=== PATIENT | female | born 1985 | race Caucasian/White ===

== ENCOUNTER 2018-03-28 02:23 | Outpatient (CLI) | payer BC, SELFPAY ==
--- NOTE | 2018-03-28 11:44 | DI.MRI_ITS ---
SYMPTOM/DIAGNOSIS: LT KNEE PAIN, M25.562 LEFT KNEE MRI: Fat suppressed T 2 axial, T 1 and fat suppressed T 2 coronal, proton density and fat suppressed T 2 sagittal and oblique sagittal proton density sequences were performed. The marrow shows patchy increased signal consistent with red marrow reconversion which is commonly seen with obesity and anemia. There is a small joint effusion. The exam is limited by patient body habitus. The knee coil was unable to be used. There is mild edema in the anterior cruciate ligament which could indicate a partial tear. Minimal high signal is seen around the medial collateral ligament. No meniscal tears or cartilage defects are seen. IMPRESSION: Limited exam due to patient body habitus. There is a question of ACL and MCL sprains.
== END 2018-03-28 02:43 ==
PROVIDERS: PCP Nurse Practitioner Family; Visit Provider Nurse Practitioner Family
DX: M25.562 Pain in left knee (principal); M25.462 Effusion, left knee; S83.92XA Sprain of unspecified site of left knee, initial encounter
CPT/HCPCS: 73721

== ENCOUNTER 2018-07-02 12:25 | Outpatient (REF) | payer BC, SELFPAY ==
[2018-07-02 13:11] LABS: TSH (W/Ref FT4) 2.03 uIU/mL (0.358-3.74)
== END 2018-07-02 12:45 ==
LOC: NCHCN 12:25
PROVIDERS: PCP Nurse Practitioner Family; Visit Provider Nurse Practitioner Family
DX: E03.9 Hypothyroidism, unspecified (principal)
CPT/HCPCS: 84443

== ENCOUNTER 2019-10-08 16:41 | Outpatient (REF) | payer MEDICAID, SELFPAY ==
[2019-10-08 19:04] LABS: *AMPHETAMINES SCREEN URINE Negative (Negative); *BARBITURATES SCREEN URINE Negative (Negative); *BENZODIAZEPINES SCREEN URINE Negative (Negative); Cannabinoids THC POSITIVE (Negative); Cocaine Screen,Urine Negative (Negative); METHADONE URINE SCREEN Negative (Negative); OPIATES URINE SCREEN Negative (Negative)
[2019-10-08 19:12] LABS: Tricyclic Antidepressants Negative (Negative)
[2019-10-10 14:53] LABS: Chlamydia Result Negative (Negative); GC Result Negative (Negative)
[2019-10-14 10:57] LABS: Buprenorphine Negative; Norbuprenorphine Negative
== END 2019-10-08 17:01 ==
LOC: LBN 16:41
PROVIDERS: PCP Nurse Practitioner Family; Visit Provider Advanced Practice Midwife
DX: Z34.91 Encounter for supervision of normal pregnancy, unspecified, first trimester (principal); Z11.3 Encounter for screening for infections with a predominantly sexual mode of transmission
CPT/HCPCS: 80307; 87491; 87591

== ENCOUNTER 2019-10-22 00:25 | Outpatient (CLI) | payer MEDICAID, SELFPAY ==
[2019-10-22 10:54] LABS: Abs Immature Grans 0.02 k/cumm (0.0-0.09); Absolute Basophil Count 0.02 k/cumm (0.0-0.2); Absolute Eosinophil Count 0.13 k/cumm (0.0-0.7); Absolute Lymphocyte Count 1.61 k/cumm (1.2-3.4); Absolute Monocyte Count 0.35 k/cumm (0.11-0.7); Absolute Neutrophil Count 8.87 k/cumm (1.2-6.7); Basophils % 0.2; Eosinophils % 1.2; HCT 40.3 % (36.0-46.0); HGB 13.5 g/dL (12.0-15.5); Immature Grans % 0.2 %; Lymphocytes % 14.6; Mean Corp. HGB Concentration 33.5 g/dL (32.0-36.0); Mean Corpuscular Hemoglobin 28.4 pg (27.0-33.0); Mean Corpuscular Volume 84.8 fL (80-95); Mean Platelet Volume 11.2 fL (8.0-11.0); Monocytes % 3.2; Neutrophils % 80.6; Platelet Count 279 x1000/uL (130-400); RBC 4.75 m/cumm (4.00-5.20); RBC Distribution Width 13.8 % (11.7-14.6)
[2019-10-22 10:56] LABS: Glucose,1 Hr (Glucola) 151 mg/dL (80-140)
[2019-10-22 11:53] LABS: TSH (W/Ref FT4) 2.49 uIU/mL (0.36-3.74)
[2019-10-23 09:58] LABS: Hepatitis B Surface Ag Negative (Negative); Hepatitis C Ab w Rflx HCV PCR Negative (Negative)
[2019-10-23 10:50] LABS: Rubella IgG Ab (UVM) Positive (See Note); Varicella IgG Antibody Negative (See Note)
[2019-10-23 11:10] LABS: HIV-1/2 Ag & Ab Screen Negative (Negative)
[2019-10-23 12:46] LABS: Syphilis Total Ab w/Reflex Nonreactive (Nonreactive)
== END 2019-10-22 00:45 ==
PROVIDERS: Advanced Practice Midwife; PCP Family Medicine; Visit Provider Advanced Practice Midwife
DX: Z34.91 Encounter for supervision of normal pregnancy, unspecified, first trimester (principal); Z11.59 Encounter for screening for other viral diseases; Z11.4 Encounter for screening for human immunodeficiency virus [HIV]; Z01.84 Encounter for antibody response examination
CPT/HCPCS: 36415; 82950; 86787; 86803; 86850; 86900; 86901; 87340; 87389; 84443; 85025; 86762; 86780

== ENCOUNTER 2019-10-27 00:56 | Outpatient (CLI) | payer MEDICAID, SELFPAY ==
--- NOTE | 2019-10-27 06:30 | DI.US_ITS ---
EXAM: US OB CERVICAL LENGTH CLINICAL HISTORY: hx LEEP, increased risk of short cervix,034.40,Z98.890. COMPARISON: No exams were available for comparison TECHNIQUE: Routine examination was performed. FINDINGS: There is a single intrauterine gestation. The heart rate is 153 beats per minute. The fetus i s in the cephalic presentation. The placenta is anterior without evidence of previa. The cervical length is 4.0 cm. IMPRESSION: The cervical length measurement is 4.0 cm. DATA REPOSITORY:
== END 2019-10-27 01:16 ==
PROVIDERS: PCP Family Medicine; Visit Provider Advanced Practice Midwife
DX: O34.42 Maternal care for other abnormalities of cervix, second trimester (principal); Z3A.16 16 weeks gestation of pregnancy
CPT/HCPCS: 76815

== ENCOUNTER 2019-10-29 00:53 | Outpatient (CLI) | payer MEDICAID, SELFPAY ==
[2019-10-29 08:45] LABS: Glucose 1 Hour 159 mg/dL
[2019-10-29 10:42] LABS: Glucose 3 Hour 66 mg/dL
== END 2019-10-29 01:13 ==
PROVIDERS: PCP Family Medicine; Visit Provider Advanced Practice Midwife
DX: R73.09 Other abnormal glucose (principal); Z34.91 Encounter for supervision of normal pregnancy, unspecified, first trimester
CPT/HCPCS: 36415; 82951

== ENCOUNTER 2019-11-11 00:43 | Outpatient (CLI) | payer MEDICAID, SELFPAY ==
--- NOTE | 2019-11-11 07:00 | DI.US_ITS ---
EXAM: US OB 2-3 TRIMESTER CLINICAL HISTORY: 18 wk anatomy survey,Z34.90. TECHNIQUE: Transabdominal obstetrical ultrasound performed. The exam is limited by patient body hab itus. COMPARISON: US OB CERVICAL LENGTH from 10/27/2019 FINDINGS: Transabdominal obstetrical ultrasound performed. FINDINGS: Number of fetuses: One. position: Breech. heart rate: 147 bpm. Placental grade: 0 Placental location: Anterior. No evidence of previa. BIOMETRIC DATA: BPD: ! 40 millimeters, 18.1 weeks HC: ! 155 millimeters, 18+ 3 weeks AC: ! 135 millimeters, 19+ 0 weeks FL: ! 29 millimeters, 18+ 6 weeks Cisterna Magna: 3.3 millimeters Cerebellum: 1.76 cm Composite Age: ! 18+ 4 weeks EDC by US: 09 April 2020 Amount of fluid is within normal limits. ANATOMICAL SURVEY: Four-chambered heart: Unremarkable. LVOT: Not well seen RVOT: Not well seen Left-sided stomach: Unremarkable. urinary bladder: Unremarkable. Bilateral kidneys: Unremarkable. Three-vessel cord: Unremarkable. Cord insertion: Unremarkable. Posterior fossa:Not well seen ventricles: Unremarkable. nose: Unremarkable. lips: Unremarkable. palate: Unremarkable. spine: Unremarkable. Two arms and two legs: Unremarkable. IMPRESSION: Single living intrauterine gestation measuring 18+ 4 weeks. anatomy was suboptimally visualize d due to maternal habitus. The patient is scheduled to return 18 November 2019 for additional imaging. DATA REPOSITORY:
== END 2019-11-11 01:03 ==
PROVIDERS: PCP Family Medicine; Visit Provider Advanced Practice Midwife
DX: Z34.92 Encounter for supervision of normal pregnancy, unspecified, second trimester (principal); Z3A.18 18 weeks gestation of pregnancy
CPT/HCPCS: 76805

== ENCOUNTER 2019-11-27 07:58 | Outpatient (CLI) | payer MEDICAID, SELFPAY ==
--- NOTE | 2019-11-27 | DI.US_ITS ---
EXAM: US OB F/U FACIAL/LVOT/RVOT CLINICAL HISTORY: F/U RVOT,LVOT, POSTERIOR FOSSA. COMPARISON: US US OB 2-3 TRIMESTER from 11/11/2019 TECHNIQUE: Transabdominal obstetrical ultrasound performed. FINDINGS: Sonographic images demonstrate a single intrauterine gestation in variable position. The placenta is anterior. There is no evidence of previa. Estimated date of delivery 14 April 2020 heart rate motion is Dopplered at: 147 bpm. RVOT: Unremarkable. LVOT: Unremarkable. Cisterna magna 2.8 millimeters. Cerebellum 2.1 cm. Normal appearance. Amniotic fluid amount is within normal limits. IMPRESSION: The heart and posterior fossa were better seen on today's exam. The exam is somewhat limited b y maternal body habitus. DATA REPOSITORY:
--- NOTE | 2019-12-10 14:14 | ANES_ITS ---
Anesthesia Note Anesthesia Consult 22 week gestation: Clinical consultation with Wolfgang George CNM in room. Discussed with pt. the various services anesthesia has to offer a patriuent at [facility]. Evaluated pts airway: MP 1, FROM Adequate mouth opening, 3 finger breadths, good dentition with one top left molar broken. Vascular access will be challenging. Neuraxial access is at this time very challenging, with consideration for further weight gain with the remainder of the . Unable to palpate any bony prominences. In collaboration with Wolfgang George CNM, a discussion was initiated regarding if Mrs. Zimmerman would be served best at a Tertiary Facility, due in great part to poor neuraxial and vascular access. This conversation was received very well by the patient.
== END 2019-11-27 08:18 ==
PROVIDERS: PCP Family Medicine; Visit Provider Advanced Practice Midwife
DX: Z34.92 Encounter for supervision of normal pregnancy, unspecified, second trimester (principal); Z36.2 Encounter for other antenatal screening follow-up
CPT/HCPCS: 76815

== ENCOUNTER 2020-01-15 02:27 | Outpatient (CLI) | payer MEDICAID, SELFPAY ==
[2020-01-15 10:31] LABS: Glucose 1 Hour 191 mg/dL
[2020-01-15 12:29] LABS: Glucose 3 Hour 59 mg/dL
== END 2020-01-15 02:47 ==
PROVIDERS: Advanced Practice Midwife; PCP Family Medicine; Visit Provider Obstetrics & Gynecology Maternal & Fetal Medicine
DX: R73.09 Other abnormal glucose (principal)
CPT/HCPCS: 36415; 82951

== ENCOUNTER 2020-12-16 17:20 | Outpatient (REF) | payer MEDICAID, SELFPAY ==
[2020-12-16 15:28] LABS: HCT 42.8 % (36.0-46.0); HGB 13.1 g/dL (11.2-15.7); MCH 24.7 pg (27.0-33.0); MCHC 30.6 % (32.0-36.0); MCV 80.8 fL (80-95); MPV 11.3 fL (8.0-11.0); Platelet Count 359 10^3/uL (130-400); RDW 15.2 % (11.7-14.6); RDW-SD 44.3 fL; WBC 13.69 10^3/uL (4.4-10.8)
[2020-12-16 17:04] LABS: Hemoglobin A1C 5.6 % (<5.7)
[2020-12-16 17:15] LABS: ALT 19 U/L (14-59); AST 13 U/L (15-37); Albumin 3.6 g/dL (3.4-5.0); Alkaline Phosphatase 88 U/L (46-116); Anion Gap 9.2 mmol/L (3-11); BUN 10 mg/dL (7-18); Bilirubin, Total 0.3 mg/dL (0.2-1.0); CO2 26.8 mmol/L (21.0-32.0); CREATININE 0.9 mg/dL (0.55-1.02); Calcium 9.4 mg/dL (8.5-10.1); Chloride 104 mmol/L (98-107); Glucose 89 mg/dL (74-106); Potassium 4.4 mmol/L (3.5-5.1); Sodium 140 mmol/L (136-145); TSH (W/Ref FT4) 3.26 uIU/mL (0.36-3.74); Total Protein 7.6 g/dL (6.4-8.2)
== END 2020-12-16 17:21 | disposition home or self-care (01) ==
LOC: NCHCN 17:20
PROVIDERS: PCP Family Medicine; Visit Provider Nurse Practitioner Family
DX: E03.9 Hypothyroidism, unspecified (principal); R73.9 Hyperglycemia, unspecified; G47.9 Sleep disorder, unspecified; Z68.43 Body mass index [BMI] 50.0-59.9, adult; Z86.32 Personal history of gestational diabetes
CPT/HCPCS: 80053; 85027; 83036; 84443

== ENCOUNTER 2020-12-28 21:12 | Emergency (ER) | payer MEDICAID, SELFPAY ==
--- NOTE | 2020-12-28 21:45 | DI.RAD_ITS ---
Exam(s) XR FOOT LT COMPLETE EXAM: XR FOOT LT COMPLETE CLINICAL HISTORY: left lateral foot pain.. TECHNIQUE: 2D digital imaging was performed. COMPARISON: No exams were available for comparison FINDINGS: BONES: There is an acute fracture through the base of the 5th metatarsal with distraction of approxim ately 4-5 mm. No other acute fractures identified. No bony destructive lesion is seen. JOINTS: No dislocation present. SOFT TISSUE: Soft tissue swelling adjacent to the 5th metatarsal. IMPRESSION: Distracted fracture of the base of the 5th metatarsal. DATA REPOSITORY: RADIATION DOSE DELIVERED:
[2020-12-28 21:47] VITALS: BP 139/80; PULSE 92; RESP 20; TEMP 36.5; O2SAT 97
--- NOTE | 2020-12-28 22:56 | DI.VRAD_ITS ---
PROCEDURE INFORMATION: Exam: XR Left Foot Exam date and time: 12/28/2020 9:57 PM Age: 35 years old Clinical indication: Injury or trauma; Blunt trauma; Left; Injury date: 12/28/20; Injury details: Lateral foot pain after trip and fall TECHNIQUE: Imaging protocol: XR Left foot. Views: 3 or more views. COMPARISON: US LEFT EXTREMITY ULTRASOUND 01/29/2018 10:44 AM FINDINGS: Bones/joints: There is mildly displaced fracture of the base of the 5th metatarsal with diastasis at the fracture line and approximately 4-5 mm proximal migration of the proximal fragment. No additional acute fracture visualized. No joint dislocation. There is accessory navicular, non fused. Alignment of the midfoot is preserved. Soft tissues: Moderate soft tissue edema of the lateral left midfoot. IMPRESSION: Base of the 5th metatarsal fracture with mild proximal migration of proximal fracture fragment as discussed. Dictated and Authenticated by: Solitario Ho MD. Ordering:PAT Alonzo MD
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
== END 2020-12-28 23:28 | disposition home or self-care (01) ==
PROVIDERS: Emergency Provider Physician Assistant; PCP Family Medicine
DX: S92.352A Displaced fracture of fifth metatarsal bone, left foot, initial encounter for closed fracture (principal); X50.9XXA Other and unspecified overexertion or strenuous movements or postures, initial encounter
CPT/HCPCS: 28470; 73630

== ENCOUNTER 2021-01-13 12:25 | Outpatient (CLI) | payer MEDICAID, SELFPAY ==
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
== END 2021-01-13 12:26 | disposition home or self-care (01) ==
LOC: DIORS 12:25
PROVIDERS: PCP Family Medicine; Referring Provider Family Medicine; Visit Provider Student in an Organized Health Care Education/Training Program
DX: S92.352A Displaced fracture of fifth metatarsal bone, left foot, initial encounter for closed fracture (principal); X58.XXXA Exposure to other specified factors, initial encounter
CPT/HCPCS: 73630

== ENCOUNTER 2021-01-27 11:02 | Outpatient (CLI) | payer MEDICAID, SELFPAY ==
--- NOTE | 2021-01-27 10:15 | DI.RAD_ITS ---
Exam(s) XR FOOT LT COMPLETE EXAM: XR FOOT LT COMPLETE CLINICAL HISTORY: follow up. TECHNIQUE: 2D digital imaging was performed. COMPARISON: CR XR FOOT LT COMPLETE from 01/13/2021 FINDINGS: BONES: No change alignment of fracture at the base of the 5th metatarsal. No new fracture is present . No bony destructive lesion is seen. JOINTS: No dislocation present. SOFT TISSUE: Normal. IMPRESSION: No change in alignment metatarsal base fracture DATA REPOSITORY: RADIATION DOSE DELIVERED:
== END 2021-01-27 11:03 | disposition home or self-care (01) ==
LOC: DIORS 11:03
PROVIDERS: PCP Family Medicine; Referring Provider Family Medicine; Visit Provider Physician Assistant Surgical
DX: S92.352D Displaced fracture of fifth metatarsal bone, left foot, subsequent encounter for fracture with routine healing (principal); W01.0XXD Fall on same level from slipping, tripping and stumbling without subsequent striking against object, subsequent encounter
CPT/HCPCS: 73630

== ENCOUNTER 2021-02-10 11:06 | Outpatient (CLI) | payer MEDICAID, SELFPAY ==
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
== END 2021-02-10 11:07 | disposition home or self-care (01) ==
LOC: DIORS 11:07
PROVIDERS: PCP Family Medicine; Referring Provider Family Medicine; Visit Provider Physician Assistant
DX: S92.352D Displaced fracture of fifth metatarsal bone, left foot, subsequent encounter for fracture with routine healing (principal); X58.XXXD Exposure to other specified factors, subsequent encounter
CPT/HCPCS: 73630

== ENCOUNTER 2022-01-30 16:29 | Outpatient (REF) | payer MEDICAID, SELFPAY ==
[2022-01-30 18:38] LABS: HCT 42.8 % (36.0-46.0); HGB 13.8 g/dL (11.2-15.7); MCH 26.6 pg (27.0-33.0); MCHC 32.2 % (32.0-36.0); MCV 83 fL (80-95); MPV 11.2 fL (8.0-11.0); Platelet Count 386 10^3/uL (130-400); RBC 5.18 10^6/uL (3.93-5.22); RDW 14.4 % (11.7-14.6); RDW-SD 43.2 fL; WBC 17.26 10^3/uL (4.4-10.8)
[2022-01-30 19:46] LABS: Hemoglobin A1C 5.8 % (<5.7)
[2022-01-30 19:52] LABS: Anion Gap 9.9 mmol/L (3-11); BUN 10 mg/dL (7-18); CO2 27.1 mmol/L (21.0-32.0); CREATININE 0.7 mg/dL (0.55-1.02); Calcium 8.9 mg/dL (8.5-10.1); Chloride 105 mmol/L (98-107); Glucose 117 mg/dL (74-106); Potassium 4.1 mmol/L (3.5-5.1); Sodium 142 mmol/L (136-145); TSH (W/Ref FT4) 2.93 uIU/mL (0.36-3.74); Vitamin B12 291 pg/mL (193-986)
== END 2022-01-30 16:30 | disposition home or self-care (01) ==
LOC: NCHCN 16:29
PROVIDERS: PCP Family Medicine; Visit Provider Nurse Practitioner Family
DX: R53.83 Other fatigue (principal); R73.9 Hyperglycemia, unspecified; E03.9 Hypothyroidism, unspecified; F41.1 Generalized anxiety disorder; Z86.32 Personal history of gestational diabetes; R06.83 Snoring; G47.20 Circadian rhythm sleep disorder, unspecified type
CPT/HCPCS: 80048; 82306; 85027; 82607; 83036; 84443

== ENCOUNTER 2022-03-23 16:17 | Outpatient (REF) | payer MEDICAID, SELFPAY ==
[2022-03-23 16:39] LABS: Abs Immature Grans 0.08 10^3/uL (0.0-0.06); Absolute Eosinophil Count 0.24 10^3/uL (0.0-0.7); Absolute Monocyte Count 0.65 10^3/uL (0.1-0.8); Absolute Neutrophil Count 13.37 10^3/uL (1.2-6.7); Basophils % 0.6; Eosinophils % 1.3; HCT 46.1 % (36.0-46.0); HGB 14.9 g/dL (11.2-15.7); Immature Grans % 0.4; Lymphocytes % 20.5; MCH 26.3 pg (27.0-33.0); MCHC 32.3 % (32.0-36.0); MCV 81 fL (80-95); MPV 11.8 fL (8.0-11.0); Monocytes % 3.6; Neutrophils % 73.6; Platelet Count 399 10^3/uL (130-400); RBC 5.67 10^6/uL (3.93-5.22); RDW 14.1 % (11.7-14.6); RDW-SD 41.1 fL; WBC 18.17 10^3/uL (4.4-10.8)
[2022-03-23 16:41] LABS: Absolute Basophil Count 0.11 10^3/uL (0.0-0.2); Absolute Lymphocyte Count 3.72 10^3/uL (1.2-3.4)
[2022-03-23 16:44] LABS: ESR 84 mm/hr (0-20)
[2022-03-23 16:56] LABS: ALT 26 U/L (14-59); AST 34 U/L (15-37); Albumin 3.4 g/dL (3.4-5.0); Alkaline Phosphatase 93 U/L (46-116); BUN 9 mg/dL (7-18); Bilirubin, Total 0.3 mg/dL (0.2-1.0); C-Reactive Protein 4.08 mg/dL (0.0-0.3); CREATININE 0.9 mg/dL (0.55-1.02); Calcium 9.6 mg/dL (8.5-10.1); Chloride 104 mmol/L (98-107); Estimated GFR 84.44 (mL/min/1.73m2); Glucose 108 mg/dL (74-106); Sodium 137 mmol/L (136-145); Total Protein 8.5 g/dL (6.4-8.2)
[2022-03-27 12:49] LABS: IgA 449 mg/dL (85-499); Interpretation (See Note); Tissue Transglutaminase IgA <1.2 U/mL (<4.0)
== END 2022-03-23 16:18 | disposition home or self-care (01) ==
LOC: NCHCN 16:17
PROVIDERS: PCP Family Medicine; Visit Provider Nurse Practitioner Family
DX: R19.7 Diarrhea, unspecified (principal); D72.829 Elevated white blood cell count, unspecified
CPT/HCPCS: 80053; 82784; 83516; 85652; 85025; 86140

== ENCOUNTER 2022-04-13 10:30 | Outpatient (REF) | payer MEDICAID, SELFPAY ==
[2022-04-13 18:38] LABS: C Diff PCR Negative (Negative)
[2022-04-14 11:46] LABS: Campylobacter PCR Negative (Negative); Salmonella PCR Negative (Negative); Shiga Toxin PCR Negative (Negative); Shigella/Enteroinvasive Ecoli Negative (Negative)
[2022-04-17 14:46] LABS: Helicobacter pylori Ag, Feces Negative (Negative)
[2022-04-17 23:32] LABS: Calprotectin <50.0 mcg/g
== END 2022-04-13 10:31 | disposition home or self-care (01) ==
LOC: LBN 10:30
PROVIDERS: PCP Family Medicine; Visit Provider Surgery
DX: K52.89 Other specified noninfective gastroenteritis and colitis (principal)
CPT/HCPCS: 87338; 87493; 87505; 83993; 87177

== ENCOUNTER → 2022-07-12 01:19 | Outpatient (CLI) | payer MEDICAID, SELFPAY ==
--- NOTE | 2022-07-12 07:30 | DI.MRI_ITS ---
Exam(s) MR IAC BRAIN WO/W EXAM: MR IAC BRAIN WO/W CLINICAL HISTORY: Sudden asymmetric sensorineural hearing loss,H90.3 TECHNIQUE: Multiplanar multisequence MRI of the brain was performed. Both noninfused and contrast i nfused sequences were performed. Additional dedicated IAC sequences were performed due to the histor y here. IV Contrast injected was 20 cc Dotarem. COMPARISON: No exams were available for comparison FINDINGS: CEREBRAL PARENCHYMA: No evidence of intracranial hemorrhage, mass effect nor shift of midline structu re. No extraaxial fluid collections. Ventricles are not enlarged nor shifted. There is no significant focal signal abnormality in the cerebellar hemispheres nor within the butch, m idbrain, and thalami. There is no abnormal signal abnormality in the periventricular white matter. No areas of of restricted diffusion evident on DWI SWI reveals no evidence of microhemorrhages. No significant focal findings in the cerebellopontine angles. No intra canalicular acoustic neuroma evident. Seventh and 8th cranial nerves appear relatively unremarkable within the internal auditory canals tabitha aterally. There are no ring enhancing lesions in the brain. There is no abnormal meningeal enhancement. PITUITARY GLAND: No mass nor parasellar abnormality. No obvious abnormality in the cavernous sinuses. FLOW VOIDS: The expected flow void are noted. No evidence of obvious aneurysm nor obvious vascular ma lformation. PARANASAL SINUSES: The visualized paranasal sinuses appear unremarkable. ORBITS: No obvious abnormal findings. IMPRESSION: 1. No significant intracranial findings on this MRI scan of the brain. 2. No abnormal ring-enhancing intracranial lesions in the brain. 3. There are no masses in the cerebellopontine angles and no evidence of intra canalicular acoustic neuroma/schwannoma, as per request. DATA REPOSITORY:
[2022-07-12] MEDS: Normal Saline Flush 10 ML SYR IVP (14:23)
[2022-07-12] MEDS: Gadoterate meglumine 20 ML VIAL IVP (14:24)
== END ==
PROVIDERS: PCP Nurse Practitioner Family; Visit Provider Registered Nurse Maternal Newborn
DX: H90.3 Sensorineural hearing loss, bilateral (principal)
CPT/HCPCS: 70553

== ENCOUNTER 2023-02-07 13:01 | Outpatient (REF) | payer MEDICAID, SELFPAY ==
[2023-02-07 17:01] LABS: Abs Immature Grans 0.08 10^3/uL (0.0-0.06); Absolute Eosinophil Count 0.21 10^3/uL (0.0-0.7); Absolute Monocyte Count 0.61 10^3/uL (0.1-0.8); Basophils % 0.5; Eosinophils % 1.4; HCT 43.8 % (36.0-46.0); HGB 13.8 g/dL (11.2-15.7); Immature Grans % 0.5; Lymphocytes % 21.9; MCH 26.2 pg (27.0-33.0); MCHC 31.5 % (32.0-36.0); MCV 83 fL (80-95); MPV 11.9 fL (8.0-11.0); Monocytes % 4.1; Neutrophils % 71.6; Platelet Count 363 10^3/uL (130-400); RBC 5.26 10^6/uL (3.93-5.22); RDW 13.6 % (11.7-14.6); RDW-SD 41.4 fL; WBC 14.87 10^3/uL (4.4-10.8)
[2023-02-07 17:03] LABS: Absolute Basophil Count 0.07 10^3/uL (0.0-0.2); Absolute Lymphocyte Count 3.26 10^3/uL (1.2-3.4); Absolute Neutrophil Count 10.65 10^3/uL (1.2-6.7)
[2023-02-07 17:27] LABS: Hemoglobin A1C 5.9 % (<5.7)
[2023-02-07 17:41] LABS: ALT 31 U/L (14-59); AST 12 U/L (15-37); Albumin 3.2 g/dL (3.4-5.0); Alkaline Phosphatase 95 U/L (46-116); Anion Gap 10.6 mmol/L (3-11); BUN 9 mg/dL (7-18); Bilirubin, Total 0.3 mg/dL (0.2-1.0); CO2 26.4 mmol/L (21.0-32.0); CREATININE 0.8 mg/dL (0.55-1.02); Calcium 9.3 mg/dL (8.5-10.1); Calculated LDL 130 mg/dL (<100); Chloride 104 mmol/L (98-107); Cholesterol 224 mg/dL (<200); Estimated GFR 96.66 (mL/min/1.73m2); Glucose 118 mg/dL (74-106); HDL Cholesterol 41 mg/dL (40-60); Magnesium 1.8 mg/dL (1.8-2.4); Potassium 4.3 mmol/L (3.5-5.1); Sodium 141 mmol/L (136-145); TSH (W/Ref FT4) 1.53 uIU/mL (0.36-3.74); Total Protein 6.9 g/dL (6.4-8.2); Triglyceride 266 mg/dL (<150)
== END 2023-02-07 13:02 | disposition home or self-care (01) ==
LOC: NCHCN 13:01
PROVIDERS: PCP Nurse Practitioner Family; Visit Provider Nurse Practitioner Family
DX: F41.1 Generalized anxiety disorder (principal); R19.7 Diarrhea, unspecified; Z86.32 Personal history of gestational diabetes; E03.9 Hypothyroidism, unspecified
CPT/HCPCS: 80053; 80061; 83036; 83735; 84443; 85025

== ENCOUNTER 2023-09-18 15:17 | Outpatient (REF) | payer MEDICAID, SELFPAY ==
[2023-09-18 18:48] LABS: HCT 44.2 % (36.0-46.0); HGB 14.2 g/dL (11.2-15.7); MCH 27.2 pg (27.0-33.0); MCHC 32.1 % (32.0-36.0); MCV 85 fL (80-95); MPV 11.5 fL (8.0-11.0); Platelet Count 369 10^3/uL (130-400); RBC 5.22 10^6/uL (3.93-5.22); RDW 13.2 % (11.7-14.6); RDW-SD 40.3 fL; WBC 17.38 10^3/uL (4.4-10.8)
[2023-09-18 19:19] LABS: ALT 25 U/L (14-59); AST 21 U/L (15-37); Albumin 3.2 g/dL (3.4-5.0); Alkaline Phosphatase 87 U/L (46-116); Anion Gap 8.7 mmol/L (3-11); BUN 8 mg/dL (7-18); Bilirubin, Total 0.4 mg/dL (0.2-1.0); CO2 26.3 mmol/L (21.0-32.0); CREATININE 0.8 mg/dL (0.55-1.02); Calcium 9.5 mg/dL (8.5-10.1); Chloride 102 mmol/L (98-107); Estimated GFR 96.66 (mL/min/1.73m2); Glucose 98 mg/dL (74-106); Potassium 4.2 mmol/L (3.5-5.1); Sodium 137 mmol/L (136-145); Total Protein 7.7 g/dL (6.4-8.2)
[2023-09-18 19:34] LABS: Hemoglobin A1C 5.6 % (<5.7)
== END 2023-09-18 15:18 | disposition home or self-care (01) ==
LOC: NCHCN 15:17
PROVIDERS: PCP Nurse Practitioner Family; Visit Provider Nurse Practitioner Family
DX: D72.828 Other elevated white blood cell count (principal); R73.09 Other abnormal glucose
CPT/HCPCS: 80053; 85027; 83036

== ENCOUNTER 2024-02-25 09:44 | Emergency (ER) | payer MEDICAID, SELFPAY ==
[2024-02-25 09:51] VITALS: BP 133/71; PULSE 133; RESP 22; TEMP 36.5; O2SAT 100
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
[2024-02-25] MEDS: Cyclobenzaprine 10 MG TAB PO (10:50)
[2024-02-25] MEDS: Lidocaine/Epinephri/Tetracaine Topical Gel 3 ML TP (10:50)
[2024-02-25] MEDS: Ibuprofen 800 MG TAB PO (10:50)
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
[2024-02-25] MEDS: Cyclobenzaprine 10 MG TAB, 3 TABS/BTL PO (11:58)
== END 2024-02-25 12:04 | disposition home or self-care (01) ==
LOC: ER 12:17
PROVIDERS: Emergency Provider Registered Nurse Emergency; PCP Nurse Practitioner Family
DX: S40.212A Abrasion of left shoulder, initial encounter (principal); V43.52XA Car driver injured in collision with other type car in traffic accident, initial encounter; W22.11XA Striking against or struck by driver side automobile airbag, initial encounter
CPT/HCPCS: 99283; 73030

== ENCOUNTER 2024-02-29 13:26 | Outpatient (CLI) | payer MEDICAID, SELFPAY ==
--- NOTE | 2024-02-29 | DI.RAD_ITS ---
Exam(s) XR ANKLE LT COMPLETE EXAM: XR ANKLE LT COMPLETE CLINICAL HISTORY: PAIN LT ANKLE JOINT, M25.572. TECHNIQUE: 2D digital imaging was performed. COMPARISON: CR XR FOOT LT COMPLETE from 02/10/2021 FINDINGS: 3 views There are 2 screws across healing lateral malleolus fracture. There is also lung to 2 normal screw a cross the previously present fracture site of the base of the 5th metatarsal. There is no obvious fr acture at this level evident on these ankle images. There is no widening the ankle mortise. Talar d ome appears unremarkable. No obvious degenerative changes in the ankle and subtalar joints. Bone de nsity normal. No significant osseous lesions. IMPRESSION: As above. DATA REPOSITORY: RADIATION DOSE DELIVERED:
== END 2024-02-29 13:46 ==
LOC: DI 13:26
PROVIDERS: PCP Nurse Practitioner Family; Visit Provider Nurse Practitioner Family
DX: Z98.890 Other specified postprocedural states (principal); M25.572 Pain in left ankle and joints of left foot
CPT/HCPCS: 73610

== ENCOUNTER 2024-04-03 12:24 | Outpatient (REF) | payer MEDICAID, SELFPAY | END 2024-04-03 12:25 | disposition home or self-care (01) | LOC: NCHCN 12:24 | PROVIDERS: PCP Nurse Practitioner Family; Visit Provider Student in an Organized Health Care Education/Training Program | DX: J02.9 Acute pharyngitis, unspecified (principal) | CPT/HCPCS: 87081 ==

== ENCOUNTER 2024-04-25 00:56 | Outpatient (CLI) | payer MEDICAID, SELFPAY ==
--- NOTE | 2024-04-25 | DI.US_ITS ---
Exam(s) US PELVIS TRANSVAGINAL EXAM: US PELVIS TRANSVAGINAL CLINICAL HISTORY: ABNL VAGINAL BLEEDING, N93.9 TECHNIQUE: Transabdominal and transvaginal imaging was performed using standard protocol. COMPARISON: No exams were available for comparison FINDINGS: Exam is limited by patient body habitus bowel gas. UTERUS: Anteverted. 7.1 x 3.3 x 4.1 cm Endometrium: Not well visualized, Myometrium: Unremarkable. Cervix: Small amount of fluid OVARIES: Not visualized DOPPLER: Color: Symmetric and uniform flow to both ovaries. No hyperemia. CUL-DE-SAC: Free fluid: None. IMPRESSION: 1. Limited exam due to patient body habitus. The uterus was not well seen. Endometrium cannot be ev aluated.. 2. The ovaries were not seen. DATA REPOSITORY:
== END 2024-04-25 01:16 ==
LOC: DI 00:56
PROVIDERS: PCP Nurse Practitioner Family; Visit Provider Physician Assistant Medical
DX: N93.9 Abnormal uterine and vaginal bleeding, unspecified (principal)
CPT/HCPCS: 76830; 76856

== ENCOUNTER 2024-12-03 08:48 | Emergency (ER) | payer MEDICAID, SELFPAY ==
[2024-12-03] VITALS (17 sets, daily range): BP systolic 127–146; BP diastolic 68–86; PULSE 73–106; RESP 9–20; TEMP 36.8; O2SAT 96–100
--- NOTE | 2024-12-03 08:45 | RT.EKG_ITS ---
APPROVED REPORT Exam: Resting ECG Reason for Exam: chest pain Patient Location: E HR:94 bpm ECG Measurements Heart Rate 94 AXIS [place] 138 P 56 QRSd 82 QRS 45 QT 339 T 48 QTc 424 Conclusion Sinus rhythm...normal P axis, V-rate 60- 99 Probable left atrial enlargement...P >50mS, <-0.10mV V1
[2024-12-03 09:24] LABS: Abs Immature Grans 0.03 10^3/uL (0.0-0.06); Absolute Basophil Count 0.05 10^3/uL (0.0-0.2); Absolute Eosinophil Count 0.22 10^3/uL (0.0-0.7); Absolute Lymphocyte Count 3.07 10^3/uL (1.2-3.4); Absolute Monocyte Count 0.55 10^3/uL (0.1-0.8); Absolute Neutrophil Count 8.56 10^3/uL (1.2-6.7); Basophils % 0.4 %; Eosinophils % 1.8 %; HCT 43.8 % (36.0-46.0); HGB 14.5 g/dL (11.2-15.7); Immature Grans % 0.2 %; Lymphocytes % 24.6 %; MCH 27.5 pg (27.0-33.0); MCHC 33.1 % (32.0-36.0); MCV 83 fL (80-95); MPV 10.7 fL (8.0-11.0); Monocytes % 4.4 %; Neutrophils % 68.6 %; Platelet Count 325 10^3/uL (130-400); RBC 5.27 10^6/uL (3.93-5.22); RDW 13.9 % (11.7-14.6); RDW-SD 42.1 fL; WBC 12.48 10^3/uL (4.4-10.8)
[2024-12-03] MEDS: FAMOTIDINE 20 MG in Normal Saline 100 ML 400 MG IVPB (09:28)
[2024-12-03] MEDS: Sucralfate 1 GM TAB PO (09:29)
[2024-12-03 09:53] LABS: ALT 23 U/L (14-59); AST 15 U/L (15-37); Albumin 3.3 g/dL (3.4-5.0); Alkaline Phosphatase 78 U/L (46-116); Anion Gap 8.5 mmol/L (3-11); BUN 8 mg/dL (7-18); Bilirubin, Total 0.5 mg/dL (0.2-1.0); CO2 26.5 mmol/L (21.0-32.0); CREATININE 0.8 mg/dL (0.55-1.02); Calcium 9.3 mg/dL (8.5-10.1); Chloride 105 mmol/L (98-107); Estimated GFR 95.46 (mL/min/1.73m2); Glucose 107 mg/dL (74-106); Lipase 19 U/L (<78); Potassium 4.2 mmol/L (3.5-5.1); Sodium 140 mmol/L (136-145); Total Protein 7.2 g/dL (6.4-8.2)
[2024-12-03 09:57] LABS: Troponin I < 4 ng/L (<or=51)
[2024-12-03 09:58] LABS: D-Dimer 290 ng/mlFEU (<500)
--- NOTE | 2024-12-03 10:15 | DI.RAD_ITS ---
Exam(s) XR CHEST 2V PA LATERAL EXAM: XR CHEST 2V PA LATERAL CLINICAL HISTORY: chest pain TECHNIQUE: 2D digital imaging was performed of the chest. Two images were obtained. PA and lateral views were obtained. COMPARISON: No exams were available for comparison FINDINGS: MEDIASTINUM: Normal. HEART: Normal. PULMONARY VASCULATURE: Normal. LUNGS: Clear. PLEURAL SPACE: No pleural effusion or pneumothorax. BONE:Within normal limits for the patient's age. OTHER FINDINGS:Normal. IMPRESSION: No acute pulmonary findings. DATA REPOSITORY: RADIATION DOSE DELIVERED:
[2024-12-03 11:07] LABS: Bilirubin Negative (Negative); Blood Negative (Negative); Clarity Clear (Clear); Glucose Negative (Negative); Ketones Negative (Negative); Leukocyte Esterase Negative (Negative); Nitrite Negative (Negative); Specific Gravity 1.015 (1.005-1.025); Urobilinogen 0.2 mg/dL (Up to 0.2)
--- NOTE | 2024-12-03 15:40 | ED.GENADUL_ITS ---
Discharge Plan Disposition Patient Disposition: Home Condition: Stable Discharge Details Clinical Impression: Atypical chest pain, GERD with esophagitis Primary Care Provider: SHERRON GUERRA ED Provider: Cheri Patel Home Meds and New Rx's Prescriptions: New famotidine [Pepcid] 20 mg tablet 20 mg PO BID Qty: 60 0RF sucralfate [Carafate] 1 gram tablet 1 g PO BID Qty: 60 0RF Continued escitalopram oxalate 20 mg tablet 20 mg PO DAILY Nexplanon 68 mg implant 1 implant subdermal ONCE Rx Instructions: as a single dose gabapentin 100 mg capsule 100 mg PO DAILY Patient Comments: takes 300mg pantoprazole 40 mg tablet,delayed release (DR/EC) 40 mg PO BID Patient Comments: TAKE ONE TABLET BY MOUTH TWICE A DAY lisdexamfetamine [Vyvanse] 50 mg capsule 50 mg PO DAILY Patient Comments: TAKE ONE CAPSULE BY MOUTH EVERY DAY FOR 28 DAYS Discharge Instructions Instructions: Esophagitis, Acid reflux and GERD in adults Additional Instructions: Continue to take your pantoprazole as prescribed Add on Pepcid and Carafate Follow-up with your doctor for recheck Please be reevaluated should you have new or worsening complaints, tried to eat earlier on in the day for your last meal and see if this helps Referrals: SHERRON GUERRA, [employer] [Primary Care Provider] - 2 days Discharge Data Discharge Date/Time-TO BE ENTERED AT DEPARTURE: 12/03/24 11:26 HPI General Date/Time Provider Initiated Documentation: 12/03/24 08:52 . HPI Narrative: 39-year-old female with GERD, obstructive sleep apnea, binge eating disorder, and hyperglycemia, presenting with sore throat and indigestion for 2 weeks. Symptoms reminiscent of previous GERD diagnosis in 03/2024, confirmed via endoscopy and colonoscopy at [facility]. Despite Protonix twice daily and Tums, condition worsened over 2 weeks. No changes in diet or alcohol consumption, but eats close to bedtime. No significant shortness of breath, calf pain, swelling, recent flights, surgeries, long drives, or history of coagulopathy. No positional changes in symptoms or early heart disease in family. No tobacco or illicit substance use. No history of hyperlipidemia, hypertension, or . Related Data Home Medications ?Medication ?Instructions ?Recorded ?Confirmed escitalopram oxalate 20 mg tablet 20 mg PO DAILY 03/30/22 12/03/24 etonogestrel 68 mg subdermal 1 implant subdermal ONCE 03/30/22 12/03/24 implant (Nexplanon) gabapentin 100 mg capsule 100 mg PO DAILY 08/18/24 12/03/24 famotidine 20 mg tablet (Pepcid) 20 mg PO BID #60 tabs 12/03/24 lisdexamfetamine 50 mg capsule 50 mg PO DAILY 12/03/24 12/03/24 (Vyvanse) pantoprazole 40 mg tablet,delayed 40 mg PO BID 12/03/24 12/03/24 release sucralfate 1 gram tablet (Carafate) 1 g PO BID #60 tabs 12/03/24 Previous Rx's ?Medication ?Instructions ?Recorded famotidine 20 mg tablet (Pepcid) 20 mg PO BID #60 tabs 12/03/24 sucralfate 1 gram tablet (Carafate) 1 g PO BID #60 tabs 12/03/24 Allergies Allergy/AdvReac Type Severity Reaction Status Date / Time Penicillins Allergy Intermediate hives/hot/s Unverified 02/25/24 09:55 ob amoxicillin Allergy Unknown Skin Rash Verified 02/25/24 09:55 lactose AdvReac Unknown Diarrhea Verified 02/25/24 09:55 oxycodone AdvReac Other (See Unverified 02/25/24 09:55 Comment) General Stated Complaint: Chest Pain EMMA: 3 Exam Narrative Exam Narrative: General Appearance: Alert and oriented x4. Vital signs: Within normal limits. HEENT: Within normal limits. Respiratory: Lungs clear to auscultation. Gastrointestinal: No reproducible tenderness in GI area. No abdominal bruit or pulsatile mass. Extremities: Distal pulses intact in all extremities. Skin: Warm and dry, no rash. Neurological: Normal. Course Vital Signs Vital signs: Vital Signs Temperature 36.8 C 12/03/24 08:50 Pulse 100 H 12/03/24 08:50 Respiratory Rate 20 12/03/24 08:50 Blood Pressure 146/79 H 12/03/24 08:50 Pulse Oximetry 97 12/03/24 08:50 Temperature 36.8 C 12/03/24 08:50 Temperature Source Oral 12/03/24 08:50 Pulse 74 12/03/24 10:31 Pulse 73 12/03/24 10:31 Respiratory Rate 10 L 12/03/24 10:31 Respiratory Effort Normal 12/03/24 09:00 Respiratory Depth Normal 12/03/24 09:00 Respiratory Pattern Normal 12/03/24 09:00 Blood Pressure 131/68 12/03/24 10:31 Blood Pressure Mean 87 12/03/24 10:31 Blood Pressure Position Sitting 12/03/24 08:50 Pulse Oximetry 98 12/03/24 10:31 Oxygen Delivery Method Room Air 12/03/24 08:50 Oxygen Flow Rate 0 12/03/24 08:50 Pain Level 7 12/03/24 09:00 Lab/Test Results Lab/Test Results: Laboratory Tests Range/Units 12/03/24 12/03/24 12/03/24 09:15 10:16 10:38 WBC (4.4-10.8) 10^3/uL 12.48 H RBC (3.93-5.22) 10^6/uL 5.27 H Hgb (11.2-15.7) g/dL 14.5 Hct (36.0-46.0) % 43.8 MCV (80-95) fL 83 MCH (27.0-33.0) pg 27.5 MCHC (32.0-36.0) % 33.1 RDW (11.7-14.6) % 13.9 Plt Count (130-400) 10^3/uL 325 MPV (8.0-11.0) fL 10.7 Immature Gran % % 0.2 Neutrophils % % 68.6 Lymphocytes % % 24.6 Monocytes % % 4.4 Eosinophils % % 1.8 Basophils % % 0.4 Nucleated RBC % (0.0-0.3) % 0.0 Absolute Neutrophils (1.2-6.7) 10^3/uL 8.56 H Absolute Lymphocytes (1.2-3.4) 10^3/uL 3.07 Absolute Monocytes (0.1-0.8) 10^3/uL 0.55 Absolute Eosinophils (0.0-0.7) 10^3/uL 0.22 Absolute Basophils (0.0-0.2) 10^3/uL 0.05 D-Dimer (<500) ng/mlFEU 290 Sodium (136-145) mmol/L 140 Potassium (3.5-5.1) mmol/L 4.2 Chloride (98-107) mmol/L 105 Carbon Dioxide (21.0-32.0) mmol/L 26.5 Anion Gap (3-11) mmol/L 8.5 BUN (7-18) mg/dL 8 Creatinine (0.55-1.02) mg/dL 0.8 Est GFR (CKD-EPI 2020) (mL/min/1.73m2) 95.46 Glucose (74-106) mg/dL 107 H Calcium (8.5-10.1) mg/dL 9.3 Total Bilirubin (0.2-1.0) mg/dL 0.5 AST (15-37) U/L 15 ALT (14-59) U/L 23 Alkaline Phosphatase (46-116) U/L 78 Troponin I (<or=51) ng/L < 4 Cancelled Total Protein (6.4-8.2) g/dL 7.2 Albumin (3.4-5.0) g/dL 3.3 L Lipase (<78) U/L 19 Urine Color (Yellow) Yellow Urine Clarity (Clear) Clear Urine pH (5-8) 8.0 Ur Specific [place] (1.005-1.025) 1.015 Urine Protein (Neg-Trace) mg/dL Negative Urine Ketones (Negative) mg/dL Negative Urine Blood (Negative) Negative Urine Nitrite (Negative) Negative Urine Bilirubin (Negative) Negative Urine Urobilinogen (Up to 0.2) mg/dL 0.2 Ur Leukocyte Esterase (Negative) Negative Urine Glucose (Negative) mg/dL Negative Range/Units 12/03/24 12:16 WBC (4.4-10.8) 10^3/uL RBC (3.93-5.22) 10^6/uL Hgb (11.2-15.7) g/dL Hct (36.0-46.0) % MCV (80-95) fL MCH (27.0-33.0) pg MCHC (32.0-36.0) % RDW (11.7-14.6) % Plt Count (130-400) 10^3/uL MPV (8.0-11.0) fL Immature Gran % % Neutrophils % % Lymphocytes % % Monocytes % % Eosinophils % % Basophils % % Nucleated RBC % (0.0-0.3) % Absolute Neutrophils (1.2-6.7) 10^3/uL Absolute Lymphocytes (1.2-3.4) 10^3/uL Absolute Monocytes (0.1-0.8) 10^3/uL Absolute Eosinophils (0.0-0.7) 10^3/uL Absolute Basophils (0.0-0.2) 10^3/uL D-Dimer (<500) ng/mlFEU Sodium (136-145) mmol/L Potassium (3.5-5.1) mmol/L Chloride (98-107) mmol/L Carbon Dioxide (21.0-32.0) mmol/L Anion Gap (3-11) mmol/L BUN (7-18) mg/dL Creatinine (0.55-1.02) mg/dL Est GFR (CKD-EPI 2020) (mL/min/1.73m2) Glucose (74-106) mg/dL Calcium (8.5-10.1) mg/dL Total Bilirubin (0.2-1.0) mg/dL AST (15-37) U/L ALT (14-59) U/L Alkaline Phosphatase (46-116) U/L Troponin I (<or=51) ng/L Cancelled Total Protein (6.4-8.2) g/dL Albumin (3.4-5.0) g/dL Lipase (<78) U/L Urine Color (Yellow) Urine Clarity (Clear) Urine pH (5-8) Ur Specific [place] (1.005-1.025) Urine Protein (Neg-Trace) mg/dL Urine Ketones (Negative) mg/dL Urine Blood (Negative) Urine Nitrite (Negative) Urine Bilirubin (Negative) Urine Urobilinogen (Up to 0.2) mg/dL Ur Leukocyte Esterase (Negative) Urine Glucose (Negative) mg/dL POC- Test(urine) Negative Medical Decision Making Results: Chest x-ray radiology interpretation of my review does not show evidence of acute abnormality CBC CMP lipase urinalysis POC all within normal limits Initial Assessment: 39-year-old female with history of GERD, obstructive sleep apnea, binge eating disorder, hyperglycemia, presents with sore throat and indigestion for the past 2 weeks. Symptoms similar to previous GERD diagnosis. ED Course: - Ordered dimer troponin - Ordered chest x-ray - Administered Carafate - Administered Pepcid - Administered GI cocktail - Feeling marked improvement after Pepcid Carafate and GI cocktail will place patient on Carafate and Pepcid and she will continue on her Protonix at home return precautions reviewed and patient expressed understanding - Reassuringly negative troponin and D-dimer Final Assessment: Patient's symptoms of sore throat and indigestion are consistent with GERD. Diagnostic tests including dimer troponin and chest x-ray were ordered. Treatment included Carafate, Pepcid, and GI cocktail. Clinical Impression: - GERD MDM Components Evaluation: - Number of Differential Diagnoses or Management Options: GERD - Amount and Complexity of Data Reviewed: dimer troponin, chest x-ray - Risk of Complication and Morbidity or Mortality: Low risk based on patient's history and current presentation. 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 (Acute) Morbid obesity with BMI of 50.0-59.9, adult (Acute) Chronic diarrhea (Acute) Carpal tunnel syndrome, right (Acute) Anxiety, generalized (Acute) Hypothyroid (Chronic) Migraine headache (Chronic Unknown) Right knee pain (Acute) History of diabetes mellitus (Acute) Hyperglycemia (Acute) Low back pain (Acute) Chronic fatigue (Acute) Sleep pattern disturbance (Acute) Snoring (Acute) Leukocytosis (Acute) Loose stools (Acute) Fracture of fifth metatarsal bone of left foot (Acute 12/28/20) Alonzo fracture (Acute) Elderly primigravida in second trimester (Acute) Elevated glucose level (Acute) Marijuana smoker (Acute) Depression affecting (Acute) (Acute) Medical History Hx gestational diabetes Fatigue Sensorineural hearing loss (SNHL) of left ear Surgical History History of 03/2020 History of wisdom tooth extraction Cholecystectomy Social History Smoking/Tobacco Use Status: Former Tobacco Use tobacco type: cigarettes Quit Date: 06/22/19 Smoking risk assessment performed?: Yes Alcohol Intake: never Drug use: Occasionally Substance use type: marijuana Housing: house Do you feel safe at home: Yes Do you feel safe in your relationship?: Yes Additional Social history: expresses she has a good relationship with History History 1 Para 0 Hx # Term Pregnancies 0 Multiple births 0 Hx # Pregnancies 0 Ectopic pregnancies 0 AB induced 0 Hx Number of Living Children 0 AB spontaneous 0 Past Pregnancies Del. Date GA/Weeks # Preg Succ Route Wgt Sex Labor Lgth Anesth esia Location Prov Complic Unknown Delivery Date: Last Updated by: Sonia Black LPN Transferred care to [facility] [place] on 12/11/2019 at 22.0 weeks gestation
== END 2024-12-03 11:26 | disposition home or self-care (01) ==
PROVIDERS: Emergency Provider Physician Assistant; PCP Nurse Practitioner Family
DX: R07.89 Other chest pain (principal); K21.00 Gastro-esophageal reflux disease with esophagitis, without bleeding; Z87.891 Personal history of nicotine dependence
CPT/HCPCS: 36415; 80053; 81025; 83690; 93005; 96365; 99285; 71046; 81003; 84484; 85025; 85379; 93010; 99284

== ENCOUNTER 2025-01-13 02:32 | Outpatient (CLI) | payer MEDICAID, SELFPAY ==
--- NOTE | 2025-01-13 13:02 | DI.MAMMO_ITS ---
Exam(s) MAMMO SCREENING EXAM: MAMMO SCREENING CLINICAL HISTORY: BASELINE, SCREENING, Z12.31 TECHNIQUE: Mammograms were interpreted according to the usual protocol including computer analysis with CAD system, tomosynthesis and C-view imaging. COMPARISON: No exams were available for comparison. Baseline examination. FINDINGS: The breasts are composed of scattered fibroglandular densities, Breast Density category B. No suspicious masses or suspicious microcalcifications are seen. No skin thickening or abnormal axillary lymph nodes are seen. IMPRESSION: BI-RADS Category 1, Negative mammogram Yearly screening mammography is recommended. Breast Density - Category B - There are scattered areas of fibroglandular density. Breast density Category C or D implies that the patient has dense breast tissue. Dense breast tissue can make it harder to find cancer on a mammogram. Dense breast tissue is also associated with an increased risk of breast cancer. This information about the result of the mammogram report was provided to the patient to raise their awareness. Use this report when you speak with the patient about their risks for breast cancer, which includes their family history. At that time, you may recommend additional screening tests (Ultrasound or MRI) as these tests may add significant information. A negative radiographic report should not delay biopsy if a dominant or clinically suspicious mass is present. Up to ten percent of cancers are not identified on mammography. A negative report may reinforce clinical impression. Adenosis and dense breasts may obscure an underlying neoplasm. False positive reports average 6 to 10%. Patient will receive a letter notifying them of these results.
== END 2025-01-13 02:52 ==
LOC: DI 02:32
PROVIDERS: PCP Nurse Practitioner Family; Visit Provider Nurse Practitioner Family
DX: Z12.31 Encounter for screening mammogram for malignant neoplasm of breast (principal); R92.323 Mammographic fibroglandular density, bilateral breasts
CPT/HCPCS: 77063; 77067

== ENCOUNTER 2025-04-22 09:26 | Outpatient (REF) | payer MEDICAID, SELFPAY ==
[2025-04-22 15:08] LABS: Abs Immature Grans 0.04 10^3/uL (0.0-0.06); HCT 44.1 % (36.0-46.0); HGB 14.2 g/dL (11.2-15.7); Immature Grans % 0.4 %; MCH 27.6 pg (27.0-33.0); MCHC 32.2 % (32.0-36.0); MCV 86 fL (80-95); MPV 11.3 fL (8.0-11.0); Platelet Count 338 10^3/uL (130-400); RBC 5.15 10^6/uL (3.93-5.22); RDW 13.6 % (11.7-14.6); RDW-SD 42.8 fL; WBC 11.15 10^3/uL (4.4-10.8)
[2025-04-22 15:20] LABS: ALT 40 U/L (14-59); AST 26 U/L (15-37); Albumin 3.4 g/dL (3.4-5.0); Alkaline Phosphatase 85 U/L (46-116); Anion Gap 8.9 mmol/L (3-11); BUN 11 mg/dL (7-18); Bilirubin, Total 0.4 mg/dL (0.2-1.0); CO2 25.1 mmol/L (21.0-32.0); Calcium 8.9 mg/dL (8.5-10.1); Calculated LDL 134 mg/dL (<100); Chloride 104 mmol/L (98-107); Cholesterol 223 mg/dL (<200); Estimated GFR 95.46 (mL/min/1.73m2); Glucose 106 mg/dL (74-106); HDL Cholesterol 55 mg/dL (>or=50); Potassium 4.7 mmol/L (3.5-5.1); Sodium 138 mmol/L (136-145); Total Protein 7.0 g/dL (6.4-8.2); Triglyceride 173 mg/dL (<150)
[2025-04-22 15:27] LABS: Hemoglobin A1C 5.5 % (<5.7)
== END 2025-04-22 09:27 | disposition home or self-care (01) ==
LOC: NCHCN 09:26
PROVIDERS: PCP Nurse Practitioner Family; Visit Provider Nurse Practitioner Family
DX: R73.9 Hyperglycemia, unspecified (principal); D72.829 Elevated white blood cell count, unspecified; R03.0 Elevated blood-pressure reading, without diagnosis of hypertension
CPT/HCPCS: 80053; 80061; 83036; 85025

== ENCOUNTER 2025-05-08 05:10 | Outpatient (CLI) | payer MEDICAID, SELFPAY ==
--- NOTE | 2025-05-08 09:42 | DI.RAD_ITS ---
Exam(s) XR ARTHRITIS SERIES EXAM: XR ARTHRITIS SERIES CLINICAL HISTORY: PAIN BILAT HANDS M79.641 M79.642 HAND WRIST PAIN PROGRESSION OVER 6 MO. TECHNIQUE: 2D digital imaging was performed. Two views of both hands. PA and ball catcher views. COMPARISON: No exams were available for comparison FINDINGS: BONES: The bones are normally mineralized. No acute fracture is present. No erosive or productive bony lesions are seen. JOINTS: No dislocation present. Joint spaces are maintained. There are no significant degenerative changes. SOFT TISSUE: Normal. IMPRESSION: Unremarkable radiographs of the bilateral hands. DATA REPOSITORY: RADIATION DOSE DELIVERED:
== END 2025-05-08 05:30 ==
PROVIDERS: PCP Nurse Practitioner Family; Visit Provider Nurse Practitioner Family
DX: M79.641 Pain in right hand (principal); M79.642 Pain in left hand
CPT/HCPCS: 73120

== ENCOUNTER 2025-06-24 15:07 | Emergency (ER) | payer MEDICAID, SELFPAY ==
[2025-06-24 15:10] VITALS: BP 135/78; PULSE 110; RESP 18; TEMP 36.8; O2SAT 99
--- NOTE | 2025-06-24 15:12 | W.ED.GENAD ---
Discharge Plan Disposition Patient Disposition: Home Condition: Improving Discharge Details Clinical Impression: Abdominal wall hernia Primary Care Provider: SHERRON GUERRA ED Provider: Dung Sutton Home Meds and New Rx's Prescriptions: New naproxen 375 mg tablet 375 mg PO BID PRNQty: 30 0RF Continued escitalopram oxalate 20 mg tablet 20 mg PO DAILY gabapentin 100 mg capsule 100 mg PO DAILY Patient Comments: takes 300mg colestipol 1 gram tablet 1 g PO BID Patient Comments: TAKE FIVE TABLETS BY MOUTH TWICE A DAY DIRECTED FOR POSTCHOLECYSECTOMY DIARRHEA metoprolol succinate 25 mg tablet extended release 24 hr 25 mg PO DAILY Patient Comments: TAKE ONE TABLET BY MOUTH EVERY DAY DIRECTED FOR BLOOD PRESSURE AND ANXIETY montelukast 10 mg tablet 10 mg PO DAILY Patient Comments: TAKE ONE TABLET BY MOUTH EVERY DAY FOR 90 DAYS FOR ALLERGIES metformin 500 mg tablet extended release 24 hr 500 mg PO DAILY Patient Comments: TAKE TWO TABLETS BY MOUTH EVERY DAY pantoprazole 40 mg tablet,delayed release (DR/EC) 40 mg PO BID Patient Comments: TAKE ONE TABLET BY MOUTH TWICE A DAY lisdexamfetamine [Vyvanse] 50 mg capsule 50 mg PO DAILY Patient Comments: TAKE ONE CAPSULE BY MOUTH EVERY DAY FOR 28 DAYS famotidine [Pepcid] 20 mg tablet 20 mg PO BID Qty: 60 0RF Discharge Instructions Instructions: Hernia Repair (DC), Abdominal wall hernias Stand Alone Forms: Portal Information Referrals: SHERRON GUERRA, BANKING SERVICES CLERK [Primary Care Provider, Medicine] Frieda Johnson MD [ [facility] STAFF PHYSICIAN, Surgery] Referral Note: call for appointment Discharge Data Discharge Physician: Dung Sutton [facility] General Date/Time Provider Initiated Documentation: 06/24/25 15:12. HPI Narrative: Patient presents emergency department complaining of left lower quadrant abdominal pain that started today. States that she has been having heavy periods that are irregular her last period was about a week ago and today woke up with severe sharp left lower quadrant abdominal pain. Denies any nausea denies any vomiting Related Data Home Medications ?Medication ?Instructions ?Recorded ?Confirmed escitalopram oxalate 20 mg tablet 20 mg PO DAILY 03/30/22 06/24/25 gabapentin 100 mg capsule 100 mg PO DAILY 08/18/24 06/24/25 famotidine 20 mg tablet (Pepcid) 20 mg PO BID #60 tabs 12/03/24 06/24/25 lisdexamfetamine 50 mg capsule 50 mg PO DAILY 12/03/24 06/24/25 (Vyvanse) pantoprazole 40 mg tablet,delayed 40 mg PO BID 12/03/24 06/24/25 release colestipol 1 gram tablet 1 g PO BID 06/24/25 06/24/25 metformin 500 mg tablet,extended 500 mg PO DAILY 06/24/25 06/24/25 release 24 hr metoprolol succinate 25 mg 25 mg PO DAILY 06/24/25 06/24/25 tablet,extended release 24 hr montelukast 10 mg tablet 10 mg PO DAILY 06/24/25 06/24/25 naproxen 375 mg tablet 375 mg PO BID PRN #30 tabs 06/24/25 Previous Rx's ?Medication ?Instructions ?Recorded famotidine 20 mg tablet (Pepcid) 20 mg PO BID #60 tabs 12/03/24 naproxen 375 mg tablet 375 mg PO BID PRN #30 tabs 06/24/25 Allergies Allergy/AdvReac Type Severity Reaction Status Date / Time Penicillins Allergy Intermediate hives/hot/s Unverified 06/24/25 15:12 ob amoxicillin Allergy Unknown Skin Rash Verified 06/24/25 15:12 lactose AdvReac Unknown Diarrhea Verified 06/24/25 15:12 oxycodone AdvReac Other (See Unverified 06/24/25 15:12 Comment) General EMMA: 3 Review of Systems Narrative: Review of Systems: Constitutional: No fevers, chills, sweats Eye: No recent visual problems ENT: No ear pain, nasal congestion, sore throat Respiratory: No shortness of breath, cough Cardiovascular: No Chest pain, palpitations, syncope Gastrointestinal: No nausea, vomiting, diarrhea Genitourinary: No hematuria Cruzito/Lymph: Negative for bruising tendency, swollen lymph glands Endocrine: Negative for excessive thirst, excessive hunger Musculoskeletal: No back pain, neck pain, joint pain, muscle pain, decreased range of motion Integumentary: No rash, pruritus, abrasions Neurologic: Alert & oriented X 4 Psychiatric: No anxiety, depression Exam Narrative Exam Narrative: Exam; vitals signs as reported above normal Constitutional; In no acute distress, afebrile General: cooperative, healthy appearing, comfortable and no acute distress HEENT: Head: normal to inspection, no palpable skull fracture and normocephalic atraumatic Eyes: : appearance normal, both eyes and all related structures EOM intact bilaterally Pupils: PERRL : conjunctiva normal Direct ophthalmoscopy: normal light reflex, normal conjunctiva, normal visual acuity Ears: Normal TM, normal external canal Nose: normal no rhinorreha Neck no JVD, supple non tender Neck: normal visual inspection, full ROM and no lymphadenopathy Chest: normal inspection of the chest Respiratory : normal respiratory effort and able to speak in complete sentences no wheezing no rales Cardio Rate: regular rate, rhythm: regular rhythm normal heart sounds S1 and S2 no murmurs, gallops, or rubs GI : normal to inspection, normal bowel sounds, soft, non tender, non distended, no organomegaly Back/Spine/ no CVA tenderness Thoracic/Lumbar Spine: no tenderness or deformities Skin no rashes or lesions Neuro: patient alert oriented x 4 and no meningeal signs, Cranial Nerves: CN's II-XI intact bilaterally, Cognition: normal cognition, Speech: speech normal, Gait: normal gait, Depp tendon reflexes normal 2+ muscle strength 5/5 bilaterally Extremities, no edema, full range of motion, normal strength Medical Decision Making MDM: Summary: Patient presents to the emergency department complaining of left lower quadrant abdominal pain that has been there for the last week getting progressively worse. She had labs done she has a mild elevation of her white count otherwise unremarkable there is no significant signs of infection. Patient had CAT scan of the abdomen pelvis with contrast which shows normal appendix no diverticulitis but does show a midline anterior abdominal hernia in the central pelvis with urinary Heinig sac consistent centimeters wide the hernia contains fat but no bowel loops there is no bowel obstruction no free air no abscess. She does state that she had a in this area. She was given Toradol with improvement and she will be discharged home with Naprosyn and she is to follow-up with surgery for the hernia repair Data Review Analysis All the data on this patient was reviewed by me including laboratory and imaging studies as well as bedside studies performed by me Independent review of Studies Imaging As reported above Lab: As reported above Risk Stratification: Patient with a large anterior abdominal ventral hernia who will be discharged Differential Diagnosis: 1. Abdominal hernia 2. Appendicitis 3. Diverticulitis 4. Ovarian cyst 5. Consultants: Shared disposition: Patient understands disposition and will follow accordingly Impression: Medical Records Medical records reviewed: Yes I reviewed the patient's medical records. Imaging Data Radiologic Study: Attestation: I personally reviewed and interpreted this imaging study as follows: Imaging: CT Scan Radiologist's impression: No. : [id number] Creator : Jared Santana Dictator : Jared Santana Software Configuration Engineer : Honey Extractor : Jared Santana Approver2 : Report Date : 06/24/2025 17:58:05 Exam(s) CT ABDOMEN PELVIS W EXAM: CT ABDOMEN PELVIS W CLINICAL HISTORY: LLQ pain. TECHNIQUE: Imaging Protocol: Axial computed tomography images with coronal and sagittal reformatted images were created and reviewed CONTRAST MATERIAL: Intravenous: Omnipaque-350 100cc Oral: None COMPARISON: No exams were available for comparison FINDINGS: VISUALIZED LUNG BASES: No nodules nor pleural effusions evident. ABDOMEN: There is no ascites. LIVER: There are no focal hepatic lesions evident. No dilated intrahepatic ducts. GALLBLADDER/BILIARY: The gallbladder surgically absent. CBD is not dilated. PANCREAS: No evidence of pancreatic mass nor dilatation of the pancreatic duct. SPLEEN: Spleen is not enlarged. No obvious intrasplenic lesions. Splenic and portal veins are patent. ADRENALS: There are no significant adrenal masses. KIDNEYS:No cysts evident. No solid renal masses. No calculi nor hydronephrosis.. ABDOMINAL AORTA: Abdominal aorta is not enlarged. LYMPH NODES:There is no retroperitoneal nor paraaortic adenopathy. ABDOMINAL WALL: There is a low anterior abdominal wall midline pelvic fat containing hernia sac anterior to the urinary bladder with the hernia sac measuring 10 cm wide by 4.8 cm AP by 5.8 cm craniocaudal. This contains fat and some mesenteric vessels but no fluid nor bowel loops therein and there is no evidence of bowel obstruction, free air nor abscess. There is a single surgical clip in the abdominal cavity near the base of this hernia anterior to the urinary bladder. PELVIS: GI: Appendix is retrocecal but without evidence of acute appendicitis.There is no significant sigmoid diverticular disease. LYMPH NODES: There is no intrapelvic nor inguinal adenopathy. REPRODUCTIVE: Uterus size appears normal. There is a cyst in the right ovary which measures 1.8 by 1.7 cm-probably follicular. No surrounding fluid in this region or elsewhere in the pelvis. Left ovary unremarkable. Uterus is anteverted and normal size. URINARY BLADDER: Mild thickening of the anterior wall of the bladder noted. This is posterior to the abdominal wall hernia and surgical clip as described above. OSSEOUS: No fractures and no significant osseous lesions. IMPRESSION: 1. The main finding here is a prominent low midline anterior abdominal hernia in the central pelvis with hernia sac measuring 10 cm wide x 4.8 cm AP x 5.8 cm craniocaudal; the hernia sac contains fat and no bowel loops. There is no bowel obstruction, free air, nor abscess. There has been previous surgery in this region as there is a single surgical clip in the pelvic cavity between the neck of the hernia and the anterior wall of the urinary bladder. Apparently there is a prior history of Caesarean section. 2. No evidence of appendicitis nor diverticulitis. 3. Previous cholecystectomy. The biliary tree is not dilated. 4. Small right ovarian cyst measuring 18 x 17 mm, probably follicular. There is no surrounding fluid in the the right adnexa nor the cul-de-sac. Report called by myself to the ER physician on 06/24/2025 at 5 50 p.m. Lab Data Lab results reviewed: Yes I reviewed the patient's lab results. 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 (Acute) Morbid obesity with BMI of 50.0-59.9, adult (Acute) Chronic diarrhea (Acute) Carpal tunnel syndrome, right (Acute) Anxiety, generalized (Acute) Hypothyroid (Chronic) Migraine headache (Chronic Unknown) Right knee pain (Acute) History of diabetes mellitus (Acute) Hyperglycemia (Acute) Low back pain (Acute) Chronic fatigue (Acute) Sleep pattern disturbance (Acute) Snoring (Acute) Leukocytosis (Acute) Loose stools (Acute) Fracture of fifth metatarsal bone of left foot (Acute 12/28/20) Alonzo fracture (Acute) Elderly primigravida in second trimester (Acute) Elevated glucose level (Acute) Marijuana smoker (Acute) Depression affecting (Acute) (Acute) Medical History Hx gestational diabetes Fatigue Sensorineural hearing loss (SNHL) of left ear Surgical History History of 03/2020 History of wisdom tooth extraction Cholecystectomy Social History Smoking/Tobacco Use Status: Former Tobacco Use tobacco type: cigarettes Quit Date: 06/22/19 Smoking risk assessment performed?: Yes Alcohol Intake: never Drug use: Occasionally Substance use type: marijuana Housing: house Do you feel safe at home: Yes Do you feel safe in your relationship?: Yes History History 1 Para 0 Hx # Term Pregnancies 0 Multiple births 0 Hx # Pregnancies 0 Ectopic pregnancies 0 AB induced 0 Hx Number of Living Children 0 AB spontaneous 0 Past Pregnancies Del. Date GA/Weeks # Preg Succ Route Wgt Sex Labor Lgth Anesthesia Location Prov Complic Unknown Delivery Date: Last Updated by: Sonia Black LPN [place] [facility] [place] at 22.0 weeks gestation
[2025-06-24 15:38] VITALS: BP 135/78; PULSE 110; RESP 18; TEMP 36.8
[2025-06-24 16:54] LABS: Abs Immature Grans 0.06 10^3/uL (0.0-0.06); HCT 42.3 % (36.0-46.0); HGB 13.6 g/dL (11.2-15.7); Immature Grans % 0.4 %; MCH 27.6 pg (27.0-33.0); MCHC 32.2 % (32.0-36.0); MCV 86 fL (80-95); MPV 10.1 fL (8.0-11.0); Platelet Count 351 10^3/uL (130-400); RBC 4.92 10^6/uL (3.93-5.22); RDW 13.0 % (11.7-14.6); RDW-SD 40.6 fL; WBC 14.98 10^3/uL (4.4-10.8)
[2025-06-24] MEDS: Normal Saline 1,000 ML 1000 ML IV (16:57)
[2025-06-24] MEDS: Ketorolac 15 MG/ML VIAL IVP (16:57)
[2025-06-24 17:18] LABS: ALT 21 U/L (10-49); AST 15 U/L (<34); Albumin 3.9 g/dL (3.2-5.0); Alkaline Phosphatase 76 U/L (46-116); Anion Gap 5.5 mmol/L (3-11); BUN 10 mg/dL (9-23); Bilirubin, Total 0.30 mg/dL (0.2-1.2); CO2 28.5 mmol/L (20.0-31.0); Calcium 8.8 mg/dL (8.3-10.6); Chloride 107 mmol/L (98-107); Glucose 80 mg/dL (74-106); Potassium 3.7 mmol/L (3.5-5.1); Sodium 141 mmol/L (136-145); Total Protein 6.6 g/dL (5.7-8.2)
[2025-06-24 17:21] LABS: Glucose Negative (Negative)
[2025-06-24] MEDS: Normal Saline Flush 10 ML SYR IVP (17:31)
[2025-06-24] MEDS: Normal Saline - Diluent 50 ML VIAL IJ (17:31)
[2025-06-24] MEDS: Omnipaque 350 MG/ML 100 ML BTL IJ (17:37)
--- NOTE | 2025-06-24 17:40 | DI.CT_ITS ---
Exam(s) CT ABDOMEN PELVIS W EXAM: CT ABDOMEN PELVIS W CLINICAL HISTORY: LLQ pain. TECHNIQUE: Imaging Protocol: Axial computed tomography images with coronal and sagittal reformatted images were created and reviewed CONTRAST MATERIAL: Intravenous: Omnipaque-350 100cc Oral: None COMPARISON: No exams were available for comparison FINDINGS: VISUALIZED LUNG BASES: No nodules nor pleural effusions evident. ABDOMEN: There is no ascites. LIVER: There are no focal hepatic lesions evident. No dilated intrahepatic ducts. GALLBLADDER/BILIARY: The gallbladder surgically absent. CBD is not dilated. PANCREAS: No evidence of pancreatic mass nor dilatation of the pancreatic duct. SPLEEN: Spleen is not enlarged. No obvious intrasplenic lesions. Splenic and portal veins are patent. ADRENALS: There are no significant adrenal masses. KIDNEYS:No cysts evident. No solid renal masses. No calculi nor hydronephrosis.. ABDOMINAL AORTA: Abdominal aorta is not enlarged. LYMPH NODES:There is no retroperitoneal nor paraaortic adenopathy. ABDOMINAL WALL: There is a low anterior abdominal wall midline pelvic fat containing hernia sac anterior to the urinary bladder with the hernia sac measuring 10 cm wide by 4.8 cm AP by 5.8 cm craniocaudal. This contains fat and some mesenteric vessels but no fluid nor bowel loops therein and there is no evidence of bowel obstruction, free air nor abscess. There is a single surgical clip in the abdominal cavity near the base of this hernia anterior to the urinary bladder. PELVIS: GI: Appendix is retrocecal but without evidence of acute appendicitis.There is no significant sigmoid diverticular disease. LYMPH NODES: There is no intrapelvic nor inguinal adenopathy. REPRODUCTIVE: Uterus size appears normal. There is a cyst in the right ovary which measures 1.8 by 1.7 cm-probably follicular. No surrounding fluid in this region or elsewhere in the pelvis. Left ovary unremarkable. Uterus is anteverted and normal size. URINARY BLADDER: Mild thickening of the anterior wall of the bladder noted. This is posterior to the abdominal wall hernia and surgical clip as described above. OSSEOUS: No fractures and no significant osseous lesions. IMPRESSION: 1. The main finding here is a prominent low midline anterior abdominal hernia in the central pelvis with hernia sac measuring 10 cm wide x 4.8 cm AP x 5.8 cm craniocaudal; the hernia sac contains fat and no bowel loops. There is no bowel obstruction, free air, nor abscess. There has been previous surgery in this region as there is a single surgical clip in the pelvic cavity between the neck of the hernia and the anterior wall of the urinary bladder. Apparently there is a prior history of Caesarean section. 2. No evidence of appendicitis nor diverticulitis. 3. Previous cholecystectomy. The biliary tree is not dilated. 4. Small right ovarian cyst measuring 18 x 17 mm, probably follicular. There is no surrounding fluid in the the right adnexa nor the cul-de-sac. Report called by myself to the ER physician on 06/24/2025 at 5 50 p.m. RADIATION DOSE DELIVERED: 1,093.61mGy.cm Total DLP DATA REPOSITORY: All CT scans at this facility are submitted to the National Radiology Data Registry (NRDR) Dose Index Registry (DIR) with the [employer] (A[employer]). RADIATION OPTIMIZATION: All CT scans at this facility use at least one of these dose optimization techniques: automated exposure control; mA and/or kV adjustment per patient size (includes targeted exams where dose is matched to clinical indication); or iterative reconstruction.
[2025-06-24 20:04] VITALS: BP 129/73; PULSE 81; RESP 18; TEMP 36.3
== END 2025-06-24 20:12 | disposition home or self-care (01) ==
PROVIDERS: Emergency Provider Emergency Medicine Emergency Medical Services; PCP Nurse Practitioner Family
DX: K43.9 Ventral hernia without obstruction or gangrene (principal)
CPT/HCPCS: 36415; 80053; 96374; 99285; 74177; 81003; 85025; J1885; J3490

== ENCOUNTER 2025-07-21 07:45 | Day surgery (SDC) | payer MEDICAID, SELFPAY ==
--- NOTE | 2025-07-20 20:50 | PDOC.DSDIS_ITS ---
Date of service: 07/21/25 Discharge Plan Disposition Patient Disposition: Home Condition: Good Discharge Details Reason For Visit: Incisional hernia repair Attending Provider: Rick Winchester Primary Care Provider: SHERRON GUERRA Home Meds and New Rx's Prescriptions: New tramadol 50 mg tablet 50 mg PO Q8H PRNQty: 12 0RF Rx Instructions: Take 1 tablet by mouth up to every 8 hours if needed for severe pain Continued escitalopram oxalate 20 mg tablet 20 mg PO DAILY gabapentin 100 mg capsule 100 mg PO DAILY Patient Comments: takes 300mg colestipol 1 gram tablet 1 g PO BID Patient Comments: TAKE FIVE TABLETS BY MOUTH TWICE A DAY DIRECTED FOR POSTCHOLECYSECTOMY DIARRHEA metoprolol succinate 25 mg tablet extended release 24 hr 25 mg PO DAILY Patient Comments: TAKE ONE TABLET BY MOUTH EVERY DAY DIRECTED FOR BLOOD PRESSURE AND ANXIETY montelukast 10 mg tablet 10 mg PO DAILY Patient Comments: TAKE ONE TABLET BY MOUTH EVERY DAY FOR 90 DAYS FOR ALLERGIES metformin 500 mg tablet extended release 24 hr 500 mg PO DAILY Patient Comments: TAKE TWO TABLETS BY MOUTH EVERY DAY naproxen 375 mg tablet 375 mg PO BID PRNQty: 30 0RF pantoprazole 40 mg tablet,delayed release (DR/EC) 40 mg PO BID Patient Comments: TAKE ONE TABLET BY MOUTH TWICE A DAY famotidine [Pepcid] 20 mg tablet 20 mg PO BID Qty: 60 0RF Patient Comments: taking as 40mg QD lisdexamfetamine [Vyvanse] 50 mg capsule 60 mg PO DAILY Patient Comments: TAKE ONE CAPSULE BY MOUTH EVERY DAY FOR 28 DAYS albuterol sulfate 90 mcg/actuation HFA aerosol inhaler 2 inh INHALATION PRN Patient Comments: INHALE TWO PUFFS BY MOUTH EVERY 4 HOURS DIRECTED FOR REACTIVE WHEEZING Discharge Instructions Instructions: Abdominal Hernia Repair, Open Surgery Additional Instructions: Aurora, it was nice to see you today, and I hope you have a smooth and uneventful recovery as you transition home. We were able to reduce the hernia that you have been feeling in your lower abdomen. It contained omentum, which is internal fat tissue. This is all restored to its normal position, and the previous incision was reclosed with a permanent mesh material underlying the closure. Hopefully this will reinforce the repair, and prevent any future herniation. We tried to use a fair amount of long-acting local anesthetic to help reduce pain after surgery. But as you know from your previous , this can be uncomfortable in the days to come. I added a prescription for some tramadol that you should use (if you need it) in addition to Tylenol and ibuprofen. Using ice packs over the incision will also help with pain as well as the swelling that typically occurs after this type of surgery. He also have a special dressing at the skin level called a ERIN dressing. As you will see, this is a small sponge underlying the plastic, which is connected to some suction tubing and a small suction device. So long as the the light is blinking green, everything is working appropriately. If it changes to any other colors, please call my office, or page the surgeon on-call, and let them know. You will be able to shower with this dressing. To do so, simply tap the orange button once, and the greenlight will stop blinking. Untwist the connection tubing, leaving the bandage in place at your skin level. Shower as you normally would, and when you are done, pat everything dry, retwisted the suction tubing, and tap the orange button once again. It will blink a few colors for a moment or 2 as the device reestablishes itself, but should then go back to steady blinking green. In addition to your scheduled follow-up visit, you will need to come into the office for ERIN removal next week. I have scheduled that for July 28 at 1:30 PM. If you need anything in the meantime, please do not hesitate to call. 1. Resume all of your regular medications. 2. Use ice packs over the incision to help with pain and swelling. 3. Alternate [id number] Tylenol and ibuprofen every 6 hours for the first 2 days, then use them as needed. Use the prescription for tramadol if you needed for more severe pain. 4. Leave bandage in place for 24 hours, then remove. 5. Shower with warm soapy water. Pat dry. Use a bandaid if needed to protect your clothing. 6. No soaking or tub baths until I see you in the office. 7. No heavy lifting until I see you in the office. 8. Call the office (or go directly to the emergency room after hours) if you notice any of the following: Develop chills (warm to touch), or if you have a thermometer and your temperature is above 101 Difficulty breathing or difficultly swallowing Persistent vomiting Any bleeding ? exceeding one tablespoon 9. Call your physician if the site where your intravenous was started becomes red, swollen, painful, and warm to touch. Stand Alone Forms: Portal Information Referrals: Rick Winchester MD [ [facility] STAFF PHYSICIAN, Surgery] - 08/03/25 9:30 am Activity:: No heavy lifting Remove Dressings/Wound Care:: 24 hours Shower/Bathe:: 24 hours Diet:: As Tolerated Discharge Orders Discharge Orders: Discharge Order (Routine); Ordered 07/20/25 Ordered By: Rick Winchester DS: Diagnosis Discharge Diagnosis (1) Abdominal wall hernia: Status: Acute Asessment and Plan: Outpatient postoperative follow-up
--- NOTE | 2025-07-20 20:52 | W.PM.OP ---
Operative Note Operative Note PRE-OP DIAGNOSIS: Incisional hernia POST-OP DIAGNOSIS: same PROCEDURE: Open repair of section incisional hernia with permanent mesh underlay SURGEON: Rick Winchester [employer] OPERATOR: Josephine Roldan ANESTHESIA TYPE: Local By Surgeon and General LMA/ETT Refer to Anesthesia Record ESTIMATED BLOOD LOSS: 25 PATHOLOGY: none sent COMPLICATIONS: None Patient was transported to: PACU Patient's condition: stable Implants: Bard polypropylene mesh Indications: Aurora is a 39-year-old woman with a symptomatic incisional hernia from a previous section Findings: Omentum containing incisional hernia 7 cm long by 2 cm wide Procedure Description: I met with Aurora in the preoperative area, and we reviewed the plan for surgery today. She had another chance to ask any questions, and then affirmed her previously signed consent. Next, we moved back to the operating room. She was assisted onto the OR table. Great care was taken to ensure that she was padded and supported appropriately. General endotracheal anesthesia was initiated. I then prepped and draped the suprapubic area. I anesthetized the skin just above the previous section incision. I dissected down into the subcutaneous space, and encountered an obvious incisional hernia sac. Using tedious dissection, I carefully dissected all of the surrounding adhesions from the subcutaneous fat. I brought this down onto the neck of the fascial defect. Unfortunately, the defect was too tight to reduce the contents of the hernia sac back into the peritoneal space. Therefore, I sharply incised the sac itself, and dissected down to the fascia edge which was then opened towards the patient's left side. With this space opened up slightly, I was able to reduce all of the greater omentum back into the peritoneum proper. A small portion of the hernia sac was then closed using 3-0 Vicryl suture to facilitate easier dissection of the fascia edge. The hernia defect itself is about 7 cm long by 2 cm top to bottom. Once all of the fascia edge was brought back to normal healthy tissue, I tailored a Bard polypropylene mesh to fit as an underlay with greater than 2 cm of coverage in all dimensions. Using 0 PDS suture this was delivered into the underside of the fascial edge. The fascia itself was then closed longitudinally using interrupted 0 PDS sutures. The skin and subcutaneous space was irrigated. It was hemostatic. Deep tissues were reapproximated with interrupted 2-0 Vicryl stitches. More superficial layers were reapproximated with interrupted 3-0 Vicryl stitches, and the skin was then closed with running subcuticular suture. A ERIN dressing was then applied. Aurora was then awoken from the anesthetic, extubated, and transferred to the recovery unit. Date of Procedure: 07/21/25
[2025-07-21] VITALS (18 sets, daily range): BP systolic 81–141; BP diastolic 51–79; PULSE 54–89; RESP 8–20; TEMP 36.1–36.6; O2SAT 94–99; BMI 52.0
[2025-07-21] MEDS: Lactated Ringers 1,000 ML 80 ML IV (08:13)
--- NOTE | 2025-07-21 08:27 | W.ANESPRE ---
General Info Date of Service Date Performed: 07/21/25 Height: 5 ft 2 in Weight: 129 kg Body Mass Index (BMI): 52.0 Surgical Procedure: Operation Date: 07/21/25 09:10 Proposed Procedure Side Surgeon p Herniorrhaphy Ventral, open repair with mesh Rick Winchester MD Actual Procedure Side Surgeon p Herniorrhaphy Ventral, open repair with mesh Rick Winchester MD Pre-Op Diagnosis Post-Op Diagnosis hernia Meds Allergies and Home Medications Allergies Allergy/AdvReac Type Severity Reaction Status Date / Time Penicillins Allergy Intermediate hives/hot/s Unverified 07/21/25 08:07 ob amoxicillin Allergy Unknown Skin Rash Verified 07/21/25 08:07 lactose AdvReac Unknown Diarrhea Verified 07/21/25 08:07 oxycodone AdvReac Other (See Unverified 07/21/25 08:07 Comment) Home Medication ?Medication ?Instructions ?Recorded escitalopram oxalate 20 mg tablet 20 mg PO DAILY 03/30/22 gabapentin 100 mg capsule 100 mg PO DAILY 08/18/24 famotidine 20 mg tablet (Pepcid) 20 mg PO BID #60 tabs 12/03/24 pantoprazole 40 mg tablet,delayed 40 mg PO BID 12/03/24 release colestipol 1 gram tablet 1 g PO BID 06/24/25 metformin 500 mg tablet,extended 500 mg PO DAILY 06/24/25 release 24 hr metoprolol succinate 25 mg 25 mg PO DAILY 06/24/25 tablet,extended release 24 hr montelukast 10 mg tablet 10 mg PO DAILY 06/24/25 naproxen 375 mg tablet 375 mg PO BID PRN #30 tabs 06/24/25 lisdexamfetamine 50 mg capsule 60 mg PO DAILY 06/29/25 (Vyvanse) albuterol sulfate 90 mcg/actuation 2 inh inhalation PRN 07/20/25 aerosol inhaler Current Visit Medications: Current Medications Generic Name Dose Route Start Last Admin Trade Name Freq PRN Reason Stop Dose Admin Acetaminophen 1,000 mg 07/21/25 06:00 Acetaminophen 500 Mg Tab PO 07/21/25 23:59 PREOP JAYMIE Celecoxib 200 mg 07/21/25 06:00 Celecoxib 200 Mg Cap PO 07/21/25 23:59 PREOP JAYMIE Gabapentin 600 mg 07/21/25 06:00 Gabapentin 300 Mg Cap PO 07/21/25 23:59 PREOP JAYMIE Ringer's Solution 1,000 mls @ 80 mls/hr 07/21/25 06:00 07/21/25 08:13 IV 07/21/25 23:59 80 mls/hr INFUSION JAYMIE Administration Cefazolin Sodium/Dextrose 2 gm in 50 mls @ 100 mls/hr 07/21/25 06:00 Ancef Duplex IVPB 07/21/25 23:59 PREOP JAYMIE Sodium Chloride 0 ml 07/21/25 06:00 Normal Saline Flush 10 Ml Syr IV 07/21/25 23:59 PRN PRN Sodium Chloride 0 ml 07/21/25 06:00 Normal Saline 10 Ml Vial IJ 07/21/25 23:59 DIRECTED PRN Sterile Water 0 ml 07/21/25 06:00 Water,Injection,Sterile 10 Ml Vial IJ 07/21/25 23:59 DIRECTED PRN Tramadol HCl 50 mg 07/20/25 20:54 Tramadol 50 Mg Tab PO 08/19/25 20:53 Q6H PRN PRN Pain PFSH Active Problems Active Problems: Problem Status Onset Code Abdominal wall hernia Acute K43.9 Binge eating disorder Acute F50.819 Acid reflux Chronic K21.9 Abnormal vaginal bleeding Acute N93.9 Acute left otitis media Acute H66.92 Tendinitis of right shoulder Acute M77.8 Seasonal allergies Acute J30.2 Restless leg Acute G25.81 CORIN (obstructive sleep apnea) Chronic G47.33 Carcinoma in situ of uterine cervix Acute D06.9 Asymmetrical sensorineural hearing loss Acute H90.3 Morbid obesity with BMI of 50.0-59.9, adult Acute E66.01, Z68.43 Chronic diarrhea Acute K52.9 Carpal tunnel syndrome, right Acute G56.01 Anxiety, generalized Acute F41.1 Hypothyroid Chronic E03.9 Migraine headache Chronic Unknown G43.909 Right knee pain Acute M25.561 History of diabetes mellitus Acute Z86.39 Hyperglycemia Acute R73.9 Low back pain Acute M54.50 Chronic fatigue Acute R53.82 Sleep pattern disturbance Acute G47.20 Snoring Acute R06.83 Leukocytosis Acute D72.829 Loose stools Acute R19.5 Fracture of fifth metatarsal bone of left foot Acute 12/28/20 S92.352A Alonzo fracture Acute S99.199A Elderly primigravida in second trimester Acute O09.512 Elevated glucose level Acute R73.09 Marijuana smoker Acute F12.90 Depression affecting Acute O99.340, F32.9 Acute Z34.90 Medical History Medical History Hx gestational diabetes Fatigue Sensorineural hearing loss (SNHL) of left ear Surgical History Surgical History History of 03/2020 History of wisdom tooth extraction Cholecystectomy Tobacco Smoking/Tobacco Use Status: Current-Occasional Tobacco Type: e-cigarettes Alcohol Alcohol Intake: never Substance Use Substance use: Daily Substance use type: marijuana Prental History History 1 Para 0 Hx # Term Pregnancies 0 Multiple births 0 Hx # Pregnancies 0 Ectopic pregnancies 0 AB induced 0 Hx Number of Living Children 0 AB spontaneous 0 Past Pregnancies Del. Date GA/Weeks # Preg Succ Route Wgt Sex Labor Lgth Anesthesia Location Prov Complic Unknown Delivery Date: Last Updated by: Sonia Black LPN Transferred care to [facility] on 12/11/2019 at 22.0 weeks gestation Vital Signs and Lab Results Vital Signs Most Recent Vital Signs in EMR: Most Recent Vital Signs Temp Pulse Resp BP Pulse Ox 36.6 C 86 20 129/73 99 07/21/25 08:10 07/21/25 08:10 07/21/25 08:10 07/21/25 08:10 07/21/25 08:10 Lab Results Complete Blood Count: WBC, (4.4-10.8) 14.98 10^3/uL H 06/24/25, 16:47 RBC, (3.93-5.22) 4.92 10^6/uL 06/24/25, 16:47 Hgb, (11.2-15.7) 13.6 g/dL 06/24/25, 16:47 Hct, (36.0-46.0) 42.3 % 06/24/25, 16:47 Plt Count, (130-400) 351 10^3/uL 06/24/25, 16:47 Complete Metabolic Panel: Sodium, (136-145) 141 mmol/L 06/24/25, 16:47 Potassium, (3.5-5.1) 3.7 mmol/L 06/24/25, 16:47 Chloride, (98-107) 107 mmol/L 06/24/25, 16:47 Carbon Dioxide, (20.0-31.0) 28.5 mmol/L 06/24/25, 16:47 BUN, (9-23) 10 mg/dL 06/24/25, 16:47 Creatinine, (0.55-1.02) 0.77 mg/dL 06/24/25, 16:47 Est GFR (CKD-EPI 2020), (mL/min/1.73m2) 82.77 06/24/25, 16:47 Calcium, (8.3-10.6) 8.8 mg/dL 06/24/25, 16:47 Albumin, (3.2-5.0) 3.9 g/dL 06/24/25, 16:47 Glucose, (74-106) 80 mg/dL 06/24/25, 16:47 Liver Function Panel: ALT, (10-49) 21 U/L 06/24/25, 16:47 AST, (<34) 15 U/L 06/24/25, 16:47 Imaging and Studies Imaging and Studies Study information below may be from another EMR and interpreted by another provider. Please see original notes in EMR for more complete details. EKG Summary: EKG PATIENT NAME: Aurora Zimmerman UNIT #: [id number] ORDERING PROVIDER: Donnell Smith M.D. PRIMARY CARE PROVIDER: SHERRON GUERRA NP DATE/TIME OF SERVICE: 12/03/24 0849 : 1985 PERFORMING LOCATION: ER APPROVED REPORT Exam: Resting ECG Reason for Exam: chest pain Patient Location: E HR:94 bpm ECG Measurements Heart Rate 94 AXIS HI 138 P 56 QRSd 82 QRS 45 QT 339 T48 QTc 424 Conclusion Sinus rhythm...normal P axis, V-rate 60- 99 Probable left atrial enlargement...P >50mS, <-0.10mV V1 <Electronically signed by DONNELL SMITH MD in [place]> E-Sign Date: 12/03/24 E-Sign Time: 956 ADDENDUM APPROVED REPORT Exam: Resting ECG Reason for Exam: chest pain Patient Location: E HR:94 bpm ECG Measurements Heart Rate 94 AXIS HI 138 P 56 QRSd 82 QRS 45 QT 339 T48 QTc 424 Conclusion Sinus rhythm...normal P axis, V-rate 60- 99 Probable left atrial enlargement...P >50mS, <-0.10mV V1 I have reviewed and I agree with the emergency room physician's ECG interpretation. Electronically signed by: <Electronically signed by Jovita Estrada M.D. in [place]> 12/04/24 0808 Cosigned by: Anesthesia Assessment and Plan Anesthesia History Personal History: No History of Anesthesia Complications Family History: No Family History of Anesthesia Complications Exercise Tolerance Exercise Tolerance: Metabolic Equivalents>4 Pertinent Negatives Pertinent Negatives: No Symptoms of GERD Cardiac & Pulmonary Exam Cardiac Exam: Normal S1/S2 Heart Sounds Pulmonary Exam: Clear Bilateral Breath Sounds Implantable Cardiac Device Does patient have a Pacemaker or an ICD?: No Airway Exam Known Difficult Airway: No Mallampati Class: 2 Mouth Opening: Normal (> 3cm) Thyromental Distance: Greater than 3 cm Neck Range of Motion: Full ROM Neck Circumference: Normal Teeth Condition: Normal Dentition Airway Comments: some missing teeth, nothing sharp or loose per patient ASA Classification ASA Score: ASA 3 Emergency Case?: No NPO Status NPO Status: NPO Clears >2 hours, Solids >8 hours Status Status: Negative HCG Anesthesia Plan Resuscitation Status: Full Code Anesthesia Technique: General Anesthesia Airway Planned: Endotracheal Tube Monitors Used: Standard Monitors
[2025-07-21] MEDS: Celecoxib 200 MG CAP PO (08:43)
[2025-07-21] MEDS: Gabapentin 300 MG CAP 600 MG PO (08:43)
[2025-07-21] MEDS: Acetaminophen 500 MG TAB 1000 MG PO (08:43)
[2025-07-21] MEDS: ceFAZolin 2 GM/50 ML BAG IVPB (09:21)
[2025-07-21] MEDS: Bupivacaine LIPOSOME/PF 133 MG/10 ML VIAL IJ (09:32)
[2025-07-21] MEDS: Bupivacaine 0.25% Pres-Free 30 ML VIAL (09:32)
[2025-07-21] MEDS: traMADol 50 MG TAB PO (11:54)
--- NOTE | 2025-07-21 14:31 | W.ANESPOSTOP ---
Postoperative Evaluation Date, Time and Location Date Performed: 07/21/25 Time Performed: 12:40 Patient Location: Day Surgery Unit Vital Signs Most Recent Imported Vital Signs: Most Recent Vital Signs Temp Pulse Resp BP Pulse Ox 36.1 C L 73 16 103/67 98 07/21/25 12:23 07/21/25 12:23 07/21/25 12:23 07/21/25 12:23 07/21/25 12:23 Pain Score Most Recent Pain Score: Most Recent Pain Score Pain Level 3 07/21/25 12:23 Assessment Mental Status: Awake (Alert & Oriented to Patient Baseline) Airway and Respiratory Function: Patent airway with normal (patient baseline) respiratory exam Cardiovascular Function: Hemodynamically Stable Hydration Status: Adequately Hydrated Nausea & Vomiting: No Nausea or Vomiting Pain: Pain is tolerable per patient Peripheral Nerve Block: Patient did not receive a nerve block
== END 2025-07-21 13:06 | disposition home or self-care (01) ==
LOC: SUR 07:45
PROVIDERS: PCP Nurse Practitioner Family; Visit Provider Surgery
PROC: (CPT 49593; principal; 2025-07-21 09:00)
DX: K43.2 Incisional hernia without obstruction or gangrene (principal); E11.9 Type 2 diabetes mellitus without complications; G47.33 Obstructive sleep apnea (adult) (pediatric); E66.01 Morbid (severe) obesity due to excess calories; E03.9 Hypothyroidism, unspecified; Z68.43 Body mass index [BMI] 50.0-59.9, adult; Z79.899 Other long term (current) drug therapy
CPT/HCPCS: 49593; C1781; J0665; J0666; J0690; J1100; J2003; J2250; J2405; J2704; J3010; J3475